=== PATIENT | male | born 1990 | race Caucasian/White ===

== ENCOUNTER 2024-06-01 19:47 | Emergency (ER) | payer OTHER ==
[~2024-06-01] VITALS: Ht 167.6 cm; Wt 109.1 kg
[2024-06-01 19:50] VITALS: TEMP 98.2
[2024-06-01 20:15] VITALS: BP 110/68; PULSE 88; RESP 17; O2SAT 99
[2024-06-01 21:01] LABS: GLUCOMETER DEV NAME(LOC) ERT.6; GLUCOSE,POINT OF CARE 110 MG/DL (70-110)
== END 2024-06-01 23:59 | disposition home or self-care (01) ==
LOC: EMS 19:47
DX: F10.129 Alcohol abuse with intoxication, unspecified (principal)
CPT/HCPCS: 82962; 99282; 99283